=== PATIENT | male | born 1950 | race African-American/Black ===

== ENCOUNTER 2016-09-10 05:02 | Inpatient (IN) | payer MEDICARE ==
[2016-08-28 15:10] LABS: HEMATOCRIT 36.5 % (42.0-52.0); HEMOGLOBIN 11.6 gm/dL (14.0-18.0); MCH 25.9 pg (26.0-34.0); MCHC 31.7 % (28.0-37.0); MCV 81.8 fL (80.0-100.0); RBC 4.47 mil/uL (4.50-6.00); RDW 18.2 % (10.5-14.5); WBC 5.9 thou/uL (4.0-11.0)
[2016-08-28 15:13] LABS: URINE BILIRUBIN NEGATIVE (Negative); URINE BLOOD NEGATIVE (Negative); URINE COLOR YELLOW; URINE GLUCOSE-RANDOM* NEGATIVE (Negative); URINE KETONES NEGATIVE (Negative); URINE LEUKOCYTES-REFLEX NEGATIVE (Negative); URINE PROTEIN (DIPSTICK) NEGATIVE (Negative); URINE SPECIFIC GRAVITY 1.025 (1.003-1.035); URINE UROBILINOGEN 0.2 E.U./dl (0.2-1.0)
[2016-08-28 15:20] LABS: CALCIUM 8.4 mg/dL (8.5-10.1); POTASSIUM 3.9 mmol/L (3.5-5.1)
[2016-08-28 15:25] LABS: PROTIME 10.6 Seconds (9.3-11.4)
[~2016-09-10] VITALS: Ht 182.9 cm; Wt 79.4 kg
[2016-09-10] VITALS (12 sets, daily range): BP systolic 108–151; BP diastolic 70–113
--- NOTE | ~2016-09-10 | EKG ---
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: Cruz FRANZ : 1950 Requested By: Ellie Keenan Order Number: [id number] MD: Rene Riley Measurements Intervals [place] Rate: 82 P: 56 MD: 185 QRS: 22 QRSD: 91 T: 52 QT: 353 QTc: 413 Interpretive Statements Sinus rhythm Atrial premature complexes Abnormal R-wave progression, early transition Compared to ECG 09/10/2016 17:39:01 Atrial premature complex(es) now present Electronically Signed On 09-12-2016 8:01:33 AEROPLANE PILOT by Rene Riley [email or web address] <ELECTRONICALLY SIGNED> By: Rene Riley MD, [facility] 09/12/16 0801 1704 1704 Rene Riley MD, [facility] /EPI
--- NOTE | ~2016-09-10 | H ---
[facility] [address] [place] [address] HISTORY AND PHYSICAL Name: MERCED SHIRLEY Room #: 448-P [facility] IN M.R.#: [id number] Admission: 09/10/16 Attend Phys: Fabian Justice MD Discharge: 09/13/16 Date of : 46 Report #: [id number] THIS REPORT FOR: //name// For History and Physical, please see office documentation/handwritten note in the patient's medical record. <ELECTRONICALLY SIGNED> By: Fabian Justice MD 09/17/16 0735 0950 Fabian Justice MD /
--- NOTE | ~2016-09-10 | EKG ---
[address] [address] ELECTROCARDIOGRAM REPORT Name: MERCED SHIRLEY Room #: 150-1 ADM IN M.R.#: [id number] Admission: 09/10/16 Attend Phys: Fabian Justice MD Discharge: Date of : 46 Report #: [id number] THIS REPORT FOR: //name// 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: marvin : 1950 Requested By: Dante Mccallum Order Number: [id number] MD: Rodo Yap Measurements Intervals [place] Rate: 89 P: 60 NC: 192 QRS: 4 QRSD: 92 T: 48 QT: 379 QTc: 462 Interpretive Statements Sinus rhythm Borderline low voltage, extremity leads Abnormal R-wave progression, early transition Baseline wander in lead(s) V1 No previous ECG available for comparison Electronically Signed On 09-10-2016 11:48:21 FUEL HOUSE ATTENDANT by Rodo Yap [email or web address] <ELECTRONICALLY SIGNED> By: Rodo Yap MD 09/10/16 1148 1124 1124 Rodo Yap MD /EPI
--- NOTE | ~2016-09-10 | 2DMMODE ---
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 BP: 99 / 61 HR: 89bpm Height: 72in Weight: 174.6lb Study data: M-mode, complete 2D, complete spectral Doppler, and color Doppler. Location: Bedside. Routine. Image quality was adequate. The study was technically limited due to restricted patient mobility. No measurements were obtainable.The parasternal window was low, thus no M-mode measurements were recorded. 2D measurements Normal Normal LVID ED 36-57 IVS ED 6-11 LVID ES 23-40 LVPW ED 6-11 LA volume index 16ml/m2 16-28 AoRoot diam ED 21-37 LVOT diameter 18-23 Findings: Left ventricle: The cavity size was normal. Wall thickness was normal. Systolic function was normal. The estimated ejection fraction was in the range of 55% to 60%. Wall motion was normal. Right ventricle: The cavity size was normal. Systolic function was normal. Right atrium: The atrium was normal in size. Left atrium: The atrium was normal in size. Volume index: 16ml/m2 (S). Aortic valve: The valve appears to be grossly normal. Doppler: There was no stenosis. No regurgitation. Peak velocity: 112.5cm/s (S). [facility] [address] [place] [address] 2 D/M-MODE ECHOCARDIOGRAM Name: MERCED SHIRLEY Room #: 448-P [facility] IN [place]#: [id number] Admission: 09/10/16 Attend Phys: Fabian Justice, Discharge: Date of : 46 Date of Service: 09/11/16 0840 Report #: [id number] Mitral valve: The valve appears to be grossly normal. Doppler: There was no evidence for stenosis. No regurgitation. Peak E-wave velocity: 57.7cm/s. Peak A-wave velocity: 55.6cm/s. Tricuspid valve: Structurally normal valve. Doppler: There was no evidence for stenosis. No regurgitation. Pulmonic valve: Structurally normal valve. Doppler: There was no evidence for stenosis. No regurgitation. Pericardium: There was no pericardial effusion. Aorta: Aortic root: The aortic root was normal in size. Pulmonary artery: Pressure could not be reliably determined due to minimal or absent tricuspid insufficiency jet, but pulmonary hypertension was not suggested. Diastolic function: Normal diastolic function. Systemic veins: Inferior vena cava: Not visualized. Conclusions Technically difficult study. 1. Left ventricle: Systolic function was normal. The estimated ejection fraction was in the range of 55% to 60%. Wall motion was normal. 2. Aortic valve: The valve appears to be grossly normal. There was no stenosis. No regurgitation. 3. Mitral valve: The valve appears to be grossly normal. There was no evidence for stenosis. No regurgitation. 4. Pericardium, extracardiac: There was no pericardial effusion. <ELECTRONICALLY SIGNED> By: Rene Riley MD, [facility] 09/11/16 1025 0840 1025 [facility] Riley MD, [facility] /aneudy
--- NOTE | ~2016-09-10 | EKG ---
[place] [address] [facility] [place] [address] ELECTROCARDIOGRAM REPORT Name: MERCED SHIRLEY Room #: 448-P ADM IN M.R.#: [id number] Admission: 09/10/16 Attend Phys: Fabian Justice MD Discharge: Date of : 46 Report #: [id number] THIS REPORT FOR: //name// [facility] Test Date: 2016-09-10 Test Time: 17:39:01 Pat Name: MERCED SHIRLEY Department: Room: 448 P Gender: M Tele Rn: Cruz FRANZ : 1950 Requested By: Han Brice Order Number: [id number] MD: Rene Riley Measurements Intervals [place] Rate: 64 P: 67 MD: 196 QRS: 22 QRSD: 110 T: 44 QT: 436 QTc: 450 Interpretive Statements Sinus rhythm Abnormal R-wave progression, early transition Compared to ECG 09/10/2016 11:24:29 No significant changes Electronically Signed On 09-11-2016 7:38:02 BILLING CONTROL CLERK by Rene Riley [email or web address] <ELECTRONICALLY SIGNED> By: Rene Riley MD, [facility] 09/11/16 0738 173 38 Rene Riley MD, [facility] /EPI
--- NOTE | ~2016-09-10 | O ---
[facility] [address] [place] [address] OPERATIVE REPORT Name: MERCED SHIRLEY Room #: 448-P DIS IN M.R.#: [id number] Admission: 09/10/16 Attend Phys: Fabian Justice MD Discharge: 09/13/16 Date of : 46 Report #: [id number] THIS REPORT FOR: //name// CC: CHALINO Justice DATE OF SERVICE: 09/10/2016 PREOPERATIVE DIAGNOSIS: Left knee degenerative joint disease, severe, with underlying rheumatoid arthritis. POSTOPERATIVE DIAGNOSIS: Left knee degenerative joint disease, severe, with underlying rheumatoid arthritis. OPERATIVE PROCEDURE: Left total knee arthroplasty. SURGEON: Fabian Justice MD. WALLCOVERING HANGER: Donald Woodard, nurse practitioner. INDICATIONS FOR WALLCOVERING HANGER: During the course of operation, extensive manipulation, retraction, and limb positioning was required. This was afforded to me by my branch assistant. ANESTHESIA: General. INDICATIONS: See hospital H and P revisions 09/10/2016. IMPLANTS UTILIZED: We Used a DePuy PFC knee system. We used a cruciate retaining femoral component of size 6, size 6 tibial tray, with 15 mm insert, and a 48 mm oval dome patella. DESCRIPTION OF PROCEDURE: After adequate general anesthesia had been obtained, the patient's left lower extremity was prepped and draped in the usual meticulous sterile fashion. Limb was exsanguinated with gravity, tourniquet was inflated to 350 torr. Anterior midline incision was made, which is little bit medial because he had a previous lateral incision. Subq was divided sharply. Hemostasis obtained with electrocautery. Medial parapatellar incision was made. Infrapatellar fat pad excised. Medial release performed. Drill was used to drill the distal femur. This hole was enlarged, irrigated, suctioned, and the intramedullary guide placed the full length of the femur. Distal femoral cutting guide pinned to appropriate rotation and height, and the distal femoral cut was made. Rongeur was used to remove additional osteophytes. At this time, the tibia was translated anteriorly, menisci were excised. We [address] [address] OPERATIVE REPORT Name: FERNMERCED Room #: 448-P DIS IN M.R.#: [id number] Admission: 09/10/16 Attend Phys: Fabian Justice MD Discharge: 09/13/16 Date of : 46 Report #: [id number] drilled the central portion of the tibia, and then placed the IM guide with the tibial cutting guide, and pinned it in position. The patient has significant varus, where we cut in perpendicular to the tibia, size 6 tray gave us the best coverage. We put the trial components in position. He was quite tight medially compared to laterally, due to his chronic varus deformity, so I elected to do medial release. When we did this, this resulted in improved balance, and with 15 spacer, we had the best flexion and extension gap. At this time, the patella was addressed, it was measured, cutting guide clamped into place, patellar cut was made. It tracked normally. The 41 template gave us the best coverage. We drilled the peg holes. It tracked normally, when we placed the trial components in position. At this time, the distal femur was drilled. Trial components were removed. The tibial keel cuts were made. The knee was irrigated with both pulse lavage and antibiotic irrigation. We vacuum mixed the cement, when it reached the appropriate consistency, the knee was thoroughly dried. The tibial tray was cemented in to place. Excess cement was removed. #15 liner was impacted in to place, and the femur impacted in to place, and the knee was taken out to 30 degrees of flexion with uniform compression placed across the components. Patellar button was then cemented into place and again excess cement was removed. At this time, we allowed the cement to fully cure. Irrigation was allowed to rest in the wound, while the cement fully cured. When it had done so, the knee was inspected, irrigated once again and dried thoroughly. Drains were placed superolaterally, both deep and superficial. The retinacular layer closed with a combination of interrupted [id number] #1 Vicryl, as well as running #1 Tevdek. SubQ closed with 2-0 Monocryl. Skin closed with scott. Sterile compressive dressing was applied. Tourniquet deflated. <ELECTRONICALLY SIGNED> By: Fabian Justice MD 09/17/16 0735 1110 1450 Fabian Justice MD /nt
--- NOTE | ~2016-09-10 | HC ---
[facility] [place] [address] [place] [address] CONSULTATION Name: MERCED SHIRLEY Room #: 448-P ADM IN M.R.#: [id number] Admission: 09/10/16 Attend Phys: Fabian Justice MD Discharge: Date of : 46 Report #: [id number] THIS REPORT FOR: //name// CC: CHALINO Justice Consult has been requested by Dr. Justice for paroxysmal AFib for atrial fibrillation, hypertension, coronary artery disease. HISTORY OF PRESENT ILLNESS: The patient is a 66-year-old male with history of hypertension, history of coronary artery disease, hyperlipidemia, was admitted today for an elective left knee arthroplasty. The patient is seen postoperatively in the room. During anesthesia, the patient did have an episode of atrial fibrillation. There is no documentation, this is through the nursing staff. The patient denies any shortness of breath at present. Denies any chest pain. He has some mild dizziness at present. The patient did say that he has had on and off palpitations for the last year or so, but never been diagnosed with AFib. PAST MEDICAL HISTORY: Is significant for hypertension, history of back surgery, history of right knee arthroplasty in the past, history of coronary artery disease status post HI and a stent in 2013. No history of any peptic ulcer disease or bleeding disorder. FAMILY HISTORY: Is significant for heart disease. SOCIAL HISTORY: No smoking, alcohol abuse or illicit drug abuse. HOME MEDICATIONS: He does take Plavix. He also takes metoprolol, Plavix, nitroglycerin, lisinopril, atorvastatin and [place]. ALLERGIES: No known drug allergy. REVIEW OF SYSTEMS: CONSTITUTIONAL: No fever or chills. No recent weight loss, weight gain. EYES: No change in vision. THROAT: Denies any sore throat. CARDIOVASCULAR: Denies any chest pain. He does have some mild dizziness. RESPIRATORY: No cough or expectoration. GASTROINTESTINAL: No nausea, vomiting, abdominal pain. GENITOURINARY: No dysuria or hematuria. NEUROLOGIC: No focal numbness or weakness of the extremities. PSYCHIATRIC: No anxiety or depression. A 12-point review of system is negative other than the positive and negative dictated in the history of present illness and review of system. [facility] [address] [place] [address] CONSULTATION Name: MERCED SHIRLEY Room #: 448-P [facility] IN [facility].#: [id number] Admission: 09/10/16 Attend Phys: Fabian Justice MD Discharge: Date of : 46 Report #: [id number] PHYSICAL EXAMINATION: VITAL SIGNS: Blood pressure is 114/73, heart rate of 66 per minute, afebrile. GENERAL: The patient is awake and alert, not in acute respiratory distress. EYES: Pupils equal, reactive to light, nonicteric conjunctivae. NECK: Supple, no JVD, no bruit, no lymphadenopathy. CARDIOVASCULAR SYSTEM: S1, S2, no S3, no murmur. CHEST: Bilateral air entry present. Clear on auscultation. ABDOMEN: Soft, bowel sounds present, no mass, no organomegaly, no tenderness. PERIPHERY: No pedal edema. No calf tenderness. Dorsalis pedis 1+. NEUROLOGICAL: No gross motor or sensory deficit in the upper extremity, did not test on the lower extremity. LABORATORY DATA: Reviewed. His MRSA nasal screen was negative. His white count was 5.9 on 08/28/2016. Hemoglobin, hematocrit and platelets within normal limit. BUN and creatinine in the 12 and 1.0 on 08/28/2016. Albumin is 3-0. UA was essentially negative on 09/07/2016. PT INR were normal on 08/28/2016. EKG done on September 2015 showed normal sinus rhythm, no abnormal ST segment or T-wave changes. ASSESSMENT AND PLAN: 1. Possible paroxysmal atrial fibrillation. We will try to obtain his strep from the anesthesia. We will monitor on telemetry. We will obtain serial troponins to rule out any acute HI. EKG also has been requested. Cardiology has been consulted. The patient will be continued on his metoprolol. His echocardiogram on 08/13/2015 showed he had a left ventricular size is approximately 60-65%, normal RV, had a cardiac catheterization in 2013, which showed a totally occluded mid LAD just beyond the first diagonal. He had a drug-eluting stent placed. We will repeat the echocardiogram. 2. Coronary artery disease. The patient will be restarted back on his Plavix and is cleared by orthopedic surgery. 3. 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 We will continue his metoprolol. 4. History of hyperlipidemia. The patient will be continued on Lovastatin. 5. Deep venous thrombosis prophylaxis as per Orthopedic Surgery. He will be on Xarelto. His last stress test was in October of 2015, which showed no evidence of Lexiscan-inducible ischemia. 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 Treatment plan has been explained to the patient in detail. <ELECTRONICALLY SIGNED> By: Han Brice MD 09/10/16 1921 1703 08 Han Brice MD /nt
[~2016-09-10 05:02] MED LIST: ATORVASTATIN CA40 MG PO; FLOMAX0.4 MG PO; HYDROCODONE-APA1 TA1 PO; LISINOPRIL5 MG PO; LOPRESSOR25 PO; NEURONTIN 300300 M1 PO; NITROGLYCERIN0.4 MG SUBLING; PLAVIX 75 MG TA75 M1 PO; PRILOSEC 20 MG20 MG PO; XARELTO10 MG PO
[2016-09-10 18:05] LABS: ANION GAP 8 mmol/L (7-16); BUN 14 mg/dL (7-18); CALCIUM 8.3 mg/dL (8.5-10.1); CHLORIDE 104 mmol/L (98-107); CO2 24 mmol/L (21-32); CREATININE 0.8 mg/dL (0.6-1.3); GLUCOSE 110 mg/dL (70-99); POTASSIUM 4.5 mmol/L (3.5-5.1); SODIUM 136 mmol/L (136-145)
[2016-09-10 18:14] LABS: MAGNESIUM 1.9 mg/dL (1.8-2.4); TROPONIN-I < 0.04 ng/mL (<0.04-0.07)
[2016-09-11 03:42] VITALS: BP 101/64
[2016-09-11 04:00] VITALS: BP 101/64
[2016-09-11 05:23] LABS: HEMOGLOBIN 10.3 gm/dL (14.0-18.0); MCH 26.4 pg (26.0-34.0); MCHC 32.2 % (28.0-37.0); MCV 82.1 fL (80.0-100.0); PLATELET COUNT 214 thou/uL (150-400); RDW 18.4 % (10.5-14.5); WBC 9.2 thou/uL (4.0-11.0)
[2016-09-11 05:49] LABS: MANUAL DIFF YES
[2016-09-11 06:09] LABS: CREATININE 0.9 mg/dL (0.6-1.3); MAGNESIUM 1.8 mg/dL (1.8-2.4); POTASSIUM 3.9 mmol/L (3.5-5.1)
[2016-09-11 08:02] VITALS: BP 99/61
[2016-09-11 08:12] LABS: ABSOLUTE NEUTROPHILS 7.3 thou/uL (1.4-8.2); ANISOCYTOSIS 1+; PLATELET ESTIMATE NORMAL; TOTAL CELL COUNT 100
[2016-09-11 11:08] VITALS: BP 99/61
[2016-09-11 16:51] VITALS: BP 123/67
[2016-09-11 20:44] VITALS: BP 110/70
[2016-09-12 04:40] LABS: HEMATOCRIT 29.9 % (42.0-52.0); HEMOGLOBIN 9.4 gm/dL (14.0-18.0); MCH 26.4 pg (26.0-34.0); MCHC 31.3 % (28.0-37.0); MCV 84.2 fL (80.0-100.0); RBC 3.55 mil/uL (4.50-6.00); RDW 18.7 % (10.5-14.5); WBC 12.6 thou/uL (4.0-11.0)
[2016-09-12 05:27] VITALS: BP 98/57
[2016-09-12 08:02] VITALS: BP 109/74
[2016-09-12 16:00] VITALS: BP 119/75
[2016-09-12 20:58] VITALS: BP 117/69
[2016-09-13] VITALS (11 sets, daily range): BP systolic 90–105; BP diastolic 54–69
[2016-09-13] MEDS ORDERED: XARELTO10 MG PO (07:23)
[2016-09-13] MEDS ORDERED: PERCOCET 10-321 EACH PO (07:23)
[2016-09-13 07:55] LABS: HEMATOCRIT 26.2 % (42.0-52.0); HEMOGLOBIN 8.6 gm/dL (14.0-18.0); MCH 26.7 pg (26.0-34.0); MCHC 32.7 % (28.0-37.0); MCV 81.7 fL (80.0-100.0); RBC 3.21 mil/uL (4.50-6.00); RDW 18.5 % (10.5-14.5); WBC 8.7 thou/uL (4.0-11.0)
[2016-09-13] MEDS ORDERED: PLAVIX 75 MG TA75 M1 PO (13:27)
== END 2016-09-13 17:16 | disposition home health service (06) | DRG 470 ==
LOC: TBA 05:02 → 4S 05:02 → PRE 09:53 → 4S 15:40
PROVIDERS: Internal Medicine; Orthopaedic Surgery
PROC: 0SRD0J9 Replacement of Left Knee Joint with Synthetic Substitute, Cemented, Open Approach (ICD-10-PCS; principal; 2016-09-10)
DX: M17.12 Unilateral primary osteoarthritis, left knee (principal); I48.0 Paroxysmal atrial fibrillation; I25.10 Atherosclerotic heart disease of native coronary artery without angina pectoris; E78.5 Hyperlipidemia, unspecified; Z96.651 Presence of right artificial knee joint; M06.9 Rheumatoid arthritis, unspecified; E78.00 Pure hypercholesterolemia, unspecified; I50.9 Heart failure, unspecified; I11.0 Hypertensive heart disease with heart failure; K21.9 Gastro-esophageal reflux disease without esophagitis; N40.0 Benign prostatic hyperplasia without lower urinary tract symptoms; I25.2 Old myocardial infarction; Z87.891 Personal history of nicotine dependence; Z82.49 Family history of ischemic heart disease and other diseases of the circulatory system; Z79.899 Other long term (current) drug therapy; Z95.5 Presence of coronary angioplasty implant and graft
CPT/HCPCS: 10102; 50010; 50101; 50415; 50612; 50954; 51130; 51225; 51320; 51412; 51771; 52001; 52282; 53000; 53078; 53364; 56525; 56527; 62110; 62900; 70005